=== PATIENT | female | born 1945 | race African-American/Black ===

== ENCOUNTER 2023-07-20 17:20 | Emergency (ER) | payer MEDICARE ==
[~2023-07-20] VITALS: Ht 172.7 cm; Wt 59.0 kg
[2023-07-20 17:28] VITALS: O2SAT 100
[2023-07-20] MEDS ORDERED: SODIUM CHLORIDE 0.9% 1,000 ML IV ONE (17:45)
[2023-07-20 17:49] VITALS: BP 96/49; PULSE 91; RESP 18; TEMP 98.5
[2023-07-20 21:17] LABS: HEMATOCRIT. 28.7 % (36.0-48.0); HEMOGLOBIN. 8.9 g/dL (12.0-16.0); MEAN CORPUSCULAR HEMOGLOBIN 24.5 pg (28.0-32.0); MEAN CORPUSCULAR VOLUME 78.9 fL (81.0-99.0); MEAN PLATELET VOLUME 7.5 fl (7.4-10.4); PLATELET 296 x1000/uL (130-400); RED BLOOD CELL COUNT 3.63 mill/uL (4.2-5.4); RED CELL DISTRIBUTION WIDTH 22.8 % (11.6-14.6); WHITE BLOOD COUNT 14.3 x1000/uL (4.5-11.0)
[2023-07-20 21:19] LABS: DIFFERENTIAL COMMENT 1
[2023-07-20 21:20] LABS: ADD RBC MORPHOLOGY YES
[2023-07-20 21:22] LABS: CHLORIDE 108 mEq/L (98-107); INDEX HEMOLYSI 1 (1-3); INDEX ICTERIC 1 (1-4); INDEX LIPEMIC 1 (1-3); POTASSIUM 3.7 mEq/L (3.5-5.1); SODIUM 141 mEq/L (136-145)
[2023-07-20 21:42] LABS: ALANINE AMINOTRANSFERASE 19 IU/L (13-61); ALBUMIN 2.1 g/dL (3.4-5.0); ASPARTATE AMINOTRANSFERASE 22 IU/L (15-37); BILIRUBIN TOTAL 0.7 mg/dL (0.1-1.0); CALCIUM 8.2 mg/dL (8.5-10.1); CARBON DIOXIDE 27 mEq/L (21-32); CREATININE 1.5 mg/dL (0.6-1.3); GLUCOSE 125 mg/dL (70-105); NT PRO B-TYPE NATRIURETIC PEP 1102 pg/mL (5-125); TROPONIN I HIGH SENSITIVITY 12 ng/L (<54); UREA NITROGEN BLOOD 18 mg/dL (7-21)
[2023-07-20 21:58] LABS: ANISOCYTOSIS 1+; PLATELET ESTIMATE NORMAL
[2023-07-20 21:59] LABS: HYPOCHROMASIA 1+; MICROCYTOSIS 1+
[2023-07-21] MEDS ORDERED: ONDANSETRON HCL 4MG/2ML INJ IV PRN (10:45)
[2023-07-21] MEDS ORDERED: IPRATROPIUM/ALBUTEROL 0.5-3(2.5)MG/3ML NEB HHN PRN (10:45)
[2023-07-21] MEDS ORDERED: SODIUM CHLORIDE 0.45% 1,000 ML IV SCH (10:45)
[2023-07-21] MEDS ORDERED: PANTOPRAZOLE SODIUM 40 MG/VIAL IV SCH (10:45)
[2023-07-21] MEDS ORDERED: PIPERACILLIN/TAZOBACTAM 3.375 G in DEXTROSE 5% WATER 50 ML IV SCH (14:00)
== END 2023-07-20 22:10 | disposition left against medical advice (07) ==
LOC: ER 18:35 → EDBEDREQ 20:08 → EDBEDREQTM 20:08 → ER 22:10
DX: I95.9 Hypotension, unspecified (principal); R19.7 Diarrhea, unspecified; G89.29 Other chronic pain; Z85.9 Personal history of malignant neoplasm, unspecified
CPT/HCPCS: 99285; 96360; 71045; 80053; 83880; 83735; 85025; 84484; 36415; 93005; J7030

== ENCOUNTER 2023-09-17 18:11 | Emergency (ER) | payer MEDICARE ==
[~2023-09-17] VITALS: Ht 170.2 cm; Wt 66.0 kg
[2023-09-17 18:23] VITALS: O2SAT 100
[2023-09-17] MEDS ORDERED: SODIUM CHLORIDE 0.9% 1,000 ML IV ONE (19:00)
[2023-09-17 19:13] LABS: BASOPHILS % 1.4 % (0.0-2.0); EOSINOPHILS % 0.1 % (0.0-5.0); HEMATOCRIT. 27.9 % (36.0-48.0); HEMOGLOBIN. 9.1 g/dL (12.0-16.0); LYMPHOCYTES % 23.8 % (20.0-50.0); MEAN CORPUSCULAR HGB CONC 32.5 g/dL (31.0-37.0); MEAN PLATELET VOLUME 7.2 fl (7.4-10.4); MONOCYTES % 2.2 % (2.0-8.0); NEUTROPHILS % 72.5 % (40.0-76.0); PLATELET 573 x1000/uL (130-400); RED BLOOD CELL COUNT 3.49 mill/uL (4.2-5.4); RED CELL DISTRIBUTION WIDTH 19.1 % (11.6-14.6)
[2023-09-17 19:33] LABS: ALANINE AMINOTRANSFERASE < 7 IU/L (10-49); ALBUMIN 3.6 g/dL (3.2-4.8); ASPARTATE AMINOTRANSFERASE 15 IU/L (<34); BILIRUBIN TOTAL 0.4 mg/dL (0.1-1.0); CALCIUM 9.4 mg/dL (8.7-10.4); CARBON DIOXIDE 29 mEq/L (21-32); CHLORIDE 99 mEq/L (98-107); CREATININE 0.9 mg/dL (0.6-1.0); GLUCOSE 122 mg/dL (70-105); POTASSIUM 3.2 mEq/L (3.5-5.1); PROTEIN TOTAL 6.5 g/dL (6.0-8.3); SODIUM 137 mEq/L (136-145); UREA NITROGEN BLOOD 11 mg/dL (9-23)
[2023-09-17 20:50] VITALS: BP 156/80; PULSE 78; RESP 13; TEMP 98.5
== END 2023-09-17 19:34 | disposition home or self-care (01) ==
LOC: ER 18:11
DX: R53.1 Weakness (principal); R42 Dizziness and giddiness; Z85.9 Personal history of malignant neoplasm, unspecified
CPT/HCPCS: 99284; 96360; 80053; 85025; 36415; 93005; J7030